=== PATIENT | female | born 1945 | race African-American/Black ===

== ENCOUNTER 2017-12-29 18:59 | Emergency (ER) | payer MEDICARE, OTHER ==
--- NOTE | 2017-12-29 19:55 | ED ---
General Adult HPI - General Chief complaint: Chest Pain Stated complaint: Chest Pain Source: patient, family Mode of arrival: wheelchair Limitations: no limitations - History of Present Illness Initial comments: Dictation was produced using [employer] dictation software. please excuse any grammatical, word or spelling errors. Chief Complaint: 70-year-old Rican female presents with intermittent chest pain since 3 days ago. History of Present Illness: Patient is a 72-year-old -N[place]alese female presents with chest pain as her chief complaint per she states that her symptoms of on going since Friday. Since Friday she's had approximately 5- 6 episodes per day. She states the pain is towards her anterior sternum with radiation to the right side. States that the pain as sharp. It has any radiation to the shoulders or the neck. Denies any diaphoresis or nausea. Patient does not have any cardiology history. However she has seen a heat and vent aircraft mechanic in the past. Patient used to be a 2 pack per day smoker however has not smoked in several years. She does have history of hyperlipidemia. No diabetes or hypertension. Patient states she's been coughing mildly. The ROS documented in this emergency department record has been reviewed and confirmed by me. Those systems with pertinent positive or negative responses have been documented in the HPI. All other systems are other negative and/or noncontributory. - Related Data Home Medications Medication Instructions Recorded Confirmed Levothyroxine Sodium [Synthroid] 50 mcg PO DAILY 11/25/13 12/29/17 cloNIDine HCL [Catapres] 0.2 mg PO BID 11/25/13 12/29/17 Brinzolamide/Brimonidine Tart 1 drop BOTH EYES BID 12/29/17 12/29/17 [Simbrinza 1%-0.2% Eye Drops] Fluticasone/Salmeterol [Advair 1 puff INHALATION RT-BID 12/29/17 12/29/17 250-50 Diskus] Metoprolol Tartrate [Lopressor] 100 mg PO DAILY 12/29/17 12/29/17 hydrALAZINE HCL [Apresoline] 12.5 mg PO BID 12/29/17 12/29/17 Allergies Allergy/AdvReac Type Severity Reaction Status Date / Time No Known Allergies Allergy Verified 12/29/17 19:41 Review of Systems ROS Statement: Those systems with pertinent positive or pertinent negative responses have been documented in the HPI. ROS Other: All systems not noted in ROS Statement are negative. Past Medical History Past Medical History: Cancer, CVA/TIA, Hypertension, Thyroid Disorder Additional Past Medical History / Comment(s): gout, breast cancer 2001, heart murmur History of Any Multi-Drug Resistant Organisms: None Reported Past Surgical History: Breast Surgery Additional Past Surgical History / Comment(s): left mastectomy Past Anesthesia/Blood Transfusion Reactions: No Reported Reaction Past Psychological History: No Psychological Hx Reported Smoking Status: Former smoker Past Alcohol Use History: None Reported Past Drug Use History: None Reported General Exam - General Exam Comments Initial Comments: PHYSICAL EXAM: General Impression: Alert and oriented x3, not in acute distress HEENT: Normocephalic atraumatic, extra-ocular movements intact, pupils equal and reactive to light bilaterally, mucous membranes moist. Cardiovascular: Heart regular rate and rhythm, S1&S2 audible, no murmurs, rubs or gallops Chest: Lungs clear to auscultation bilaterally, no rhonchi, no wheeze, no rales , tenderness to palpation over the right anterior chest with reproducibility with manipulation of the right upper extremity. Abdomen: Bowel sounds present, abdomen soft, non-tender, non-distended, no organomegaly Musculoskeletal: Pulses present and equal in all extremities, no peripheral edema Motor: Power 5/5 bilaterally, no focal deficits noted Neurological: CN II-XII grossly intact, no focal motor or sensory deficits noted Skin: Intact with no visualized rashes Psych: Normal affect and mood Limitations: no limitations Course Vital Signs 12/29/17 12/29/17 12/29/17 19:17 19:45 20:34 Temperature 98.8 F Pulse Rate 65 70 62 Respiratory 20 20 20 Rate Blood Pressure 172/75 184/79 171/75 O2 Sat by Pulse 99 100 Oximetry Medical Decision Making - Medical Decision Making ED course: 72-year-old female presents with atypical chest pain. Vital signs upon arrival are within acceptable limits. Given patient's age and risk factors family requested cardiac workup. She states she wanted to get this checked out because she will be going on a bus traveling to [place] in the next couple days and does not want have any issues.Laboratory evaluation obtained. CBC is unremarkable. Patient has some microcytic anemia. Coag panel unremarkable. Metabolic panel shows mild elevation creatinine. No baseline for comparison. Cardiac enzymes are negative. Two-view chest x-ray shows no acute processes. Patient's pain seems atypical. No reason for serial enzymes. Patient's pain is reproducible with manipulation of right upper extremity. This point I believe that there is no need for further cardiac testing. Patient is advised to follow-up with primary care physician. EKG interpretation: Ventricular rate 58, sinus bradycardia,. Interval 176, QS 96, QTC 429. No IL prolongation, no QTC prolongation, no ST or T-wave changes noted. Overall, this EKG is unremarkable - Lab Data Result diagrams: 12/29/17 20:04 12/29/17 20:04 Lab Results 12/29/17 12/29/17 12/29/17 Range/Units 20:04 20:04 20:04 WBC 4.4 (3.8-10.6) k/uL RBC 5.28 (3.80-5.40) m/uL Hgb 11.5 (11.4-16.0) gm/dL Hct 38.2 (34.0-46.0) % MCV 72.5 L (80.0-100.0) fL MCH 21.9 L (25.0-35.0) pg MCHC 30.2 L (31.0-37.0) g/dL RDW 14.9 (11.5-15.5) % Plt Count 151 (150-450) k/uL Neutrophils % 48 % Lymphocytes % 43 % Monocytes % 4 % Eosinophils % 3 % Basophils % 1 % Neutrophils # 2.1 (1.3-7.7) k/uL Lymphocytes # 1.9 (1.0-4.8) k/uL Monocytes # 0.2 (0-1.0) k/uL Eosinophils # 0.1 (0-0.7) k/uL Basophils # 0.0 (0-0.2) k/uL Hypochromasia Marked Microcytosis Slight PT (9.0-12.0) sec INR (<1.2) APTT (22.0-30.0) sec Sodium 141 (137-145) mmol/L Potassium 4.5 (3.5-5.1) mmol/L Chloride 108 H (98-107) mmol/L Carbon Dioxide 28 (22-30) mmol/L Anion Gap 5 mmol/L BUN 16 (7-17) mg/dL Creatinine 1.12 H (0.52-1.04) mg/dL Est GFR (CKD-EPI)AfAm 57 (>60 ml/min/1.73 sqM) Est GFR (CKD-EPI)NonAf 49 (>60 ml/min/1.73 sqM) Glucose 99 (74-99) mg/dL Calcium 9.2 (8.4-10.2) mg/dL Magnesium 2.0 (1.6-2.3) mg/dL Total Bilirubin 0.2 (0.2-1.3) mg/dL AST 25 (14-36) U/L ALT 28 (9-52) U/L Alkaline Phosphatase 91 (38-126) U/L Total Creatine Kinase 261 H (30-135) U/L CK-MB (CK-2) 1.8 (0.0-2.4) ng/mL CK-MB (CK-2) Rel Index 0.7 Troponin I <0.012 (0.000-0.034) ng/mL Total Protein 6.6 (6.3-8.2) g/dL Albumin 3.7 (3.5-5.0) g/dL 12/29/17 Range/Units 20:04 WBC (3.8-10.6) k/uL RBC (3.80-5.40) m/uL Hgb (11.4-16.0) gm/dL Hct (34.0-46.0) % MCV (80.0-100.0) fL MCH (25.0-35.0) pg MCHC (31.0-37.0) g/dL RDW (11.5-15.5) % Plt Count (150-450) k/uL Neutrophils % % Lymphocytes % % Monocytes % % Eosinophils % % Basophils % % Neutrophils # (1.3-7.7) k/uL Lymphocytes # (1.0-4.8) k/uL Monocytes # (0-1.0) k/uL Eosinophils # (0-0.7) k/uL Basophils # (0-0.2) k/uL Hypochromasia Microcytosis PT 9.6 (9.0-12.0) sec INR 1.0 (<1.2) APTT 23.1 (22.0-30.0) sec Sodium (137-145) mmol/L Potassium (3.5-5.1) mmol/L Chloride (98-107) mmol/L Carbon Dioxide (22-30) mmol/L Anion Gap mmol/L BUN (7-17) mg/dL Creatinine (0.52-1.04) mg/dL Est GFR (CKD-EPI)AfAm (>60 ml/min/1.73 sqM) Est GFR (CKD-EPI)NonAf (>60 ml/min/1.73 sqM) Glucose (74-99) mg/dL Calcium (8.4-10.2) mg/dL Magnesium (1.6-2.3) mg/dL Total Bilirubin (0.2-1.3) mg/dL AST (14-36) U/L ALT (9-52) U/L Alkaline Phosphatase (38-126) U/L Total Creatine Kinase (30-135) U/L CK-MB (CK-2) (0.0-2.4) ng/mL CK-MB (CK-2) Rel Index Troponin I (0.000-0.034) ng/mL Total Protein (6.3-8.2) g/dL Albumin (3.5-5.0) g/dL Disposition Clinical Impression: Chest pain Disposition: HOME SELF-CARE Instructions: Chest Pain (ED) Is patient prescribed a controlled substance at d/c from ED?: No Referrals: Michael Barker Jr, [Primary Care Provider] - 1-2 days Time of Disposition: 21:37
--- NOTE | 2017-12-29 20:42 | XR ---
EXAMINATION TYPE: XR chest 2V DATE OF EXAM: 12/29/2017 COMPARISON: 06/02/2012 HISTORY: Chest pain TECHNIQUE: Frontal and lateral views of the chest are obtained. FINDINGS: There is no heart failure nor confluent pneumonic infiltrate. Costophrenic angles are kike r. There are chest leads. Thoracic aorta shows mild atheromatous change. IMPRESSION: No active cardiopulmonary disease. Normal heart. There is clearing of some infiltrate in the right lower lobe compared to old exam.
[2017-12-29 20:53] LABS: Basophils % (A) 1 %; Eosinophils # (A) 0.1 k/uL (0-0.7); Eosinophils % (A) 3 %; HCT 38.2 % (34.0-46.0); HGB 11.5 gm/dL (11.4-16.0); Hypochromasia Marked; Lymphocytes # (A) 1.9 k/uL (1.0-4.8); Lymphocytes % (A) 43 %; MCH 21.9 pg (25.0-35.0); MCHC 30.2 g/dL (31.0-37.0); MCV 72.5 fL (80.0-100.0); Microcytosis Slight; Monocytes # (A) 0.2 k/uL (0-1.0); Monocytes % (A) 4 %; Neutrophils # (A) 2.1 k/uL (1.3-7.7); Neutrophils % (A) 48 %; Platelet Count 151 k/uL (150-450); RBC 5.28 m/uL (3.80-5.40); RDW 14.9 % (11.5-15.5); WBC 4.4 k/uL (3.8-10.6)
[2017-12-29 21:02] LABS: Albumin 3.7 g/dL (3.5-5.0); Calcium 9.2 mg/dL (8.4-10.2); Potassium 4.5 mmol/L (3.5-5.1); Total Bilirubin 0.2 mg/dL (0.2-1.3); Total Protein 6.6 g/dL (6.3-8.2)
[2017-12-29 21:05] LABS: Partial Thromboplastin Time 23.1 sec (22.0-30.0); Prothrombin Time 9.6 sec (9.0-12.0)
[2017-12-29 21:07] LABS: Creatine Kinase 261 U/L (30-135)
[2017-12-29 21:20] LABS: Creatine Kinase MB 1.8 ng/mL (0.0-2.4); Troponin I <0.012 ng/mL (0.000-0.034)
[2017-12-29 21:52] VITALS: BP 163/74; PULSE 63; RESP 18; TEMP 98.7
== END 2017-12-29 21:51 | disposition home or self-care (01) ==
LOC: EC 18:59
DX: R07.89 Other chest pain (principal); R05 Cough; R79.89 Other specified abnormal findings of blood chemistry; I10 Essential (primary) hypertension; E07.9 Disorder of thyroid, unspecified; D50.9 Iron deficiency anemia, unspecified; Z85.3 Personal history of malignant neoplasm of breast; Z86.73 Personal history of transient ischemic attack (TIA), and cerebral infarction without residual deficits; Z87.891 Personal history of nicotine dependence; Z79.51 Long term (current) use of inhaled steroids; Z79.899 Other long term (current) drug therapy; Z90.12 Acquired absence of left breast and nipple
CPT/HCPCS: 36415; 71046; 80053; 82550; 82553; 83735; 84484; 85025; 85610; 85730; 93005; 99285

== ENCOUNTER → 2017-12-31 | Outpatient (CLI) | payer MEDICARE, OTHER | END | disposition home or self-care (01) | LOC: RADNMMAIN 08:16 | PROVIDERS: ATTEND Family Medicine | DX: Z53.9 Procedure and treatment not carried out, unspecified reason (principal) ==

== ENCOUNTER → 2018-02-03 | Outpatient (CLI) | payer MEDICARE, OTHER ==
[~2018-02-03] MED LIST: REGADENOSON 0.4 MG/5 ML SYRINGE IV ONE
--- NOTE | 2018-02-03 10:13 | ECHOF ---
Referral Reason:Chest pain R07.9 Hypertension I10 MEASUREMENTS -------- HEIGHT: 162.6 cm WEIGHT: 88.0 kg BP: IVSd: 1.3 cm (0.6 - 1.1) LVIDd: 4.1 cm (3.9 - 5.3) LVPWd: 1.3 cm (0.6 - 1.1) IVSs: 1.4 cm LVIDs: 3.7 cm LVPWs: 1.0 cm LA Diam: 4.1 cm (2.7 - 3.8) LAESV Index (A-L): 27.45 ml/m Ao Diam: 2.8 cm (2.0 - 3.7) AV Cusp: 1.2 cm (1.5 - 2.6) LA Diam: 4.4 cm (2.7 - 3.8) MV EXCURSION: 16.312 mm (> 18.000) MV EF SLOPE: 88 mm/s (70 - 150) EPSS: 1.1 cm MV E Denny: 0.83 m/s MV DecT: 162 ms MV A Denny: 0.74 m/s MV E/A Ratio: 1.12 RAP: 5.00 mmHg RVSP: 31.86 mmHg FINDINGS -------- Sinus rhythm. This was a technically good study. The left ventricular size is normal. There is mild concentric left ventricular hypertrophy. Overa ll left ventricular systolic function is low-normal with, an EF between 50 - 55 %. The right ventricle is normal in size. The left atrium is mildly dilated. LA is midly dilated 29-33ml/m2. The right atrial size is normal. There is mild aortic valve sclerosis. There is no evidence of aortic regurgitation. Mild mitral annular calcification present. Mild mitral regurgitation is present. Mild tricuspid regurgitation present. There is no evidence of pulmonary hypertension. The right v entricular systolic pressure, as measured by Doppler, is 31.86mmHg. There is no pulmonic regurgitation present. The aortic root size is normal. There is no pericardial effusion. CONCLUSIONS -------- 1. The left ventricular size is normal. 2. There is mild concentric left ventricular hypertrophy. 3. Overall left ventricular systolic function is low-normal with, an EF between 50 - 55 %. 4. The right ventricle is normal in size. 5. The left atrium is mildly dilated. 6. LA is midly dilated 29-33ml/m2. 7. The right atrial size is normal. 8. There is mild aortic valve sclerosis. 9. Mild mitral annular calcification present. 10. Mild mitral regurgitation is present. 11. Mild tricuspid regurgitation present. 12. There is no evidence of pulmonary hypertension. 13. The right ventricular systolic pressure, as measured by Doppler, is 31.86mmHg. 14. There is no pulmonic regurgitation present. 15. The aortic root size is normal. 16. There is no pericardial effusion. MILITARY TECHNOLOGY SPECIALIST: Julita Mena RDCS
--- NOTE | 2018-02-03 10:31 | EST ---
EXERCISE STRESS AGE: 72 SEX: F HT: 5'4" WT: 194 PROTOCOL: Lexiscan Cardiolite Stress Test HEART RATE REST: 54 BLOOD PRESSURE REST: 150/74 MAXIMUM HEART RATE ACHIEVED: 68 MAXIMUM BLOOD PRESSURE: 150/74 INDICATIONS: Chest pain, hypertension. CLINICAL INFORMATION: Baseline EKG shows sinus rhythm, nonspecific ST-T wave changes. Patient was given intravenous Lexiscan as per protocol. Did not have chest pain or diagnostic ST-segment depression. CONCLUSION: 1. Negative stress test by EKG criteria. 2. Cardiolite portion of the stress test will be reported separately. MMODL / IJN: [id number] /
--- NOTE | 2018-02-03 13:38 | NM ---
EXAMINATION TYPE: NM stress lexiscan cardiolite DATE OF EXAM: 02/03/2018 COMPARISON: 06/04/2012 HISTORY: Chest pain TECHNIQUE: After the intravenous administration of 10.2 mCi Tc 99m Sestamibi - Cardiolite resting SP ECT images acquired 50 minutes post injection. The patient received 0.4mg Lexiscan, 26.4 mCi Tc 99m Sestamibi - Stress images obtained [address] injection FINDINGS: Review of stress and rest SPECT images demonstrates no distinct perfusion abnormality. Gated analysi s shows normal wall motion with an estimated left ventricular ejection fraction of 49 %) stress. TID is calculated at 1.0 IMPRESSION: No scintigraphic evidence for reversible ischemia.
== END | disposition home or self-care (01) ==
LOC: RADNMMAIN 07:33
PROVIDERS: ATTEND Family Medicine
DX: I08.3 Combined rheumatic disorders of mitral, aortic and tricuspid valves (principal); I11.9 Hypertensive heart disease without heart failure
CPT/HCPCS: 93017; 93306; 78452; A9500; J2785

== ENCOUNTER → 2018-12-28 | Outpatient (CLI) | payer MEDICARE ==
--- NOTE | 2018-12-28 14:01 | XR ---
EXAMINATION TYPE: XR shoulder complete 3 views LT, XR humerus 2 views LT XR forearm 2 views LT DATE OF EXAM: 12/28/2018 COMPARISON: NONE HISTORY: 73-year-old female with arm pain, lymphedema FINDINGS: Left shoulder: AC joint appears intact. Subacromial space is preserved. No tendinous or bursal calcifications. No ac bassam fracture, subluxation, dislocation. Left humerus: No acute fracture. Left forearm: Generalized soft tissue swelling. No elbow joint effusion. Mild bony spurring at the lateral condyle. No acute fracture, subluxation, dislocation. IMPRESSION: 1. Left shoulder: No acute osseous abnormality seen. 2. Humerus: No acute osseous abnormality seen. 3. Forearm: Some bony spurring at the lateral epicondyle suggesting common extensor tendinopathy. Gen eralized soft tissue swelling of the forearm. No acute osseous abnormality seen.
== END | disposition home or self-care (01) ==
LOC: RADXRMAIN 11:01
PROVIDERS: ATTEND Family Medicine
DX: M79.602 Pain in left arm (principal); I89.0 Lymphedema, not elsewhere classified

== ENCOUNTER → 2021-12-07 | Outpatient (CLI) | payer MEDICARE ==
--- NOTE | 2021-12-07 13:31 | XR ---
EXAMINATION TYPE: XR chest 1V DATE OF EXAM: 12/07/2021 COMPARISON: 12/29/2017 INDICATION: Chest pain TECHNIQUE: Single frontal view of the chest is obtained. FINDINGS: The heart size is normal. The pulmonary vasculature is normal. The lungs are clear. IMPRESSION: 1. No acute pulmonary process.
== END | disposition home or self-care (01) ==
LOC: RADXRMAIN 13:08
PROVIDERS: ATTEND Internal Medicine Cardiovascular Disease
DX: I20.9 Angina pectoris, unspecified (principal)
CPT/HCPCS: 71045; 85379

== ENCOUNTER 2023-01-12 12:37 | Emergency (ER) | payer MEDICARE, OTHER ==
[2023-01-12 12:46] VITALS: BP 175/70; PULSE 60; RESP 16; TEMP 97.6
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
[2023-01-12] MEDS ORDERED: ACET/COD 300 MG/30 MG STARTER PACK 6 TAB BTL PO STA (15:52)
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
== END 2023-01-12 16:07 | disposition home or self-care (01) ==
LOC: EC 12:37
DX: M54.2 Cervicalgia (principal); R07.89 Other chest pain; M54.6 Pain in thoracic spine; I10 Essential (primary) hypertension; E07.9 Disorder of thyroid, unspecified; Z79.890 Hormone replacement therapy; Z79.899 Other long term (current) drug therapy; Z86.73 Personal history of transient ischemic attack (TIA), and cerebral infarction without residual deficits; V89.2XXA Person injured in unspecified motor-vehicle accident, traffic, initial encounter; Y92.410 Unspecified street and highway as the place of occurrence of the external cause
CPT/HCPCS: 71046; 72050; 72070; 99283

== ENCOUNTER → 2023-02-26 | Outpatient (CLI) | payer MEDICARE, OTHER ==
--- NOTE | 2023-02-27 07:31 | XR ---
EXAMINATION TYPE: XR chest 2V DATE OF EXAM: 02/26/2023 COMPARISON: 01/12/2023 HISTORY: Shortness of breath TECHNIQUE: Frontal and lateral views of the chest are obtained. FINDINGS: Scattered senescent parenchymal changes noted. No evidence for infiltrate. No evidence for atelectasis. Heart size is stable. Mediastinal structures are stable and grossly unremarkable. No evidence for hilar prominence. Degenerative changes dorsal spine. IMPRESSION: 1. No evidence for acute pulmonary disease.
== END | disposition home or self-care (01) ==
LOC: RADXRMAIN 17:30
PROVIDERS: ATTEND Family Medicine
DX: R05.9 Cough, unspecified (principal); R06.02 Shortness of breath
CPT/HCPCS: 71046

== ENCOUNTER → 2023-06-18 | Outpatient (CLI) | payer MEDICARE, OTHER ==
--- NOTE | 2023-06-19 15:31 | XR ---
EXAMINATION TYPE: XR cervical spine comp DATE OF EXAM: 06/18/2023 COMPARISON: 01/12/2023 HISTORY: 77-year-old female M25.511, right shoulder pain, bilateral neck pain TECHNIQUE: 5 views FINDINGS: No predental space widening or prevertebral soft tissue swelling. There is mild to moderate disc/endp late degenerative change particularly C5-C7 levels with prominent endplate spondylosis. Alignment is maintained. Uncovertebral joint and facet arthropathy also present here. Normal odontoid view. On the left, there is moderate bony neuroforaminal narrowing at C5-C6 and possible moderate to severe at C6 /C7. On the right, moderate bony neuroforaminal narrowing at C5-C6. IMPRESSION: Mild to moderate spondylotic changes especially C5-C7 levels. No prevertebral soft tissue swelling or malalignment. Possible moderate to severe bony neural foraminal narrowing on the left at C6-C7.
== END | disposition home or self-care (01) ==
LOC: RADXRMAIN 12:04
PROVIDERS: ATTEND Family Medicine
DX: M47.812 Spondylosis without myelopathy or radiculopathy, cervical region (principal)
CPT/HCPCS: 72050